=== PATIENT | male | born 1955 | race Caucasian/White ===

== ENCOUNTER 2017-08-23 13:56 | Emergency (ER) | payer OTHER, MEDICARE ==
[~2017-08-23] VITALS: Ht 180.3 cm; Wt 80.3 kg
[2017-08-23 15:01] LABS: Basophils # (auto) 0.1 uL; Basophils % (auto) 0.9 % (0.0-2.0); Eosinophils # (auto) 0.2 uL; Eosinophils % (auto) 2.7 % (0.0-7.0); Hematocrit 42.4 % (41.0-53.0); Hemoglobin 14.5 g/dL (13.5-17.5); Lymphocytes # (auto) 3.2 uL; Lymphocytes % (auto) 43.5 % (10.0-50.0); Mean Corpuscular Hemoglobin 33.2 pg (28.0-32.0); Mean Corpuscular Hgb Conc. 34.1 g/dL (32.0-36.0); Mean Corpuscular Volume 97.2 fL (80.0-100.0); Monocytes # (auto) 0.4 uL; Monocytes % (auto) 5.9 % (0.0-12.0); Neutrophils # (auto) 3.5 uL; Nucleated Red Blood Cells % 0.1 %; Platelet Count (auto) 255 10^3/uL (140-450); Red Blood Cells 4.36 10^6/uL (4.5-5.90); Red Cell Distribution Width 13.8 % (11.8-14.3); White Blood Cell 7.4 10^3/uL (4.4-10.8)
[2017-08-23 15:35] LABS: Albumin 3.8 g/dL (3.4-5.0); BUN/Creatinine Ratio 17.8; Bilirubin, Total 0.4 mg/dL (0.2-1.0); Calcium 8.5 mg/dL (8.5-10.1); Magnesium 2.3 mg/dL (1.6-2.6); Potassium 4.3 mmol/L (3.5-5.1)
[2017-08-23 18:10] VITALS: BP 138/91
== END 2017-08-23 16:17 | disposition home or self-care (01) ==
LOC: ER 13:56
DX: R07.89 Other chest pain (principal); M79.1 Myalgia; F17.210 Nicotine dependence, cigarettes, uncomplicated; R42 Dizziness and giddiness; Z95.2 Presence of prosthetic heart valve
CPT/HCPCS: 36415; 70450; 71046; 72125; 80053; 83735; 84443; 84484; 85025; 93005

== ENCOUNTER → 2017-11-07 | Outpatient (CLI) | payer MEDICARE, OTHER | END | disposition home or self-care (01) | LOC: XY 09:20 | PROVIDERS: ATTEND Family Medicine | DX: I70.291 Other atherosclerosis of native arteries of extremities, right leg (principal); I25.10 Atherosclerotic heart disease of native coronary artery without angina pectoris; F17.200 Nicotine dependence, unspecified, uncomplicated | CPT/HCPCS: 93306; 93886; 93925 ==

== ENCOUNTER 2017-11-21 11:01 | Day surgery (SDC) | payer MEDICARE ==
[~2017-11-21] VITALS: Ht 180.3 cm; Wt 78.5 kg
[2017-11-21] MEDS ORDERED: IODIXANOL 320MG/ML 100ML BTL IV ONE (11:10)
[2017-11-21] MEDS ORDERED: LIDOCAINE HCL 2 %PF INJ 10ML AMP IJ ONE (11:10)
[2017-11-21] MEDS ORDERED: fentaNYL CITRATE 100 MCG/2 ML VL ONE (12:11)
[2017-11-21] MEDS ORDERED: ANGIOMAX 250 MG VIAL IV ONE (12:11)
[2017-11-21] MEDS ORDERED: SODIUM CHL 0.9% 50 ML ONE (12:12)
[2017-11-21] MEDS ORDERED: MIDAZOLAM HCL 1MG/1ML-2 ML VIAL ONE (12:12)
[2017-11-21] MEDS ORDERED: IOHEXOL 350 MG/ML 100ML IJ ONE (12:59)
[2017-11-21] MEDS ORDERED: CLOPIDOGREL 300 MG TAB ONE (13:19)
[2017-11-21] MEDS ORDERED: SIMV-8 PO (15:14)
[2017-11-21] MEDS ORDERED: FLUT100I IN (15:14)
[2017-11-21] MEDS ORDERED: ASPI81TA27 PO (15:14)
[2017-11-21] MEDS ORDERED: ALBUAER3 IN (15:14)
[2017-11-21] MEDS ORDERED: NIFEdipine 10 MG CAP PO ONE (16:15)
[2017-11-21] MEDS ORDERED: NIFEdipine ER 30 MG TAB PO ONE (16:45)
== END 2017-11-21 17:10 | disposition home or self-care (01) ==
LOC: CATH 11:01
PROVIDERS: ATTEND Internal Medicine
DX: I70.211 Atherosclerosis of native arteries of extremities with intermittent claudication, right leg (principal); I71.4 Abdominal aortic aneurysm, without rupture; I10 Essential (primary) hypertension; E78.5 Hyperlipidemia, unspecified
CPT/HCPCS: C1725; C1760; C1769; C1887; C1894; J0583; J1644; J2250; J3010; Q9967; 37224; 99152; 99153

== ENCOUNTER → 2017-11-28 | Outpatient (CLI) | payer MEDICARE, OTHER ==
[~2017-11-28] MED LIST: ALBUAER3 IN; ASPI81TA27 PO; FLUT100I IN; SIMV-8 PO
== END | disposition home or self-care (01) ==
LOC: LAB 13:25
PROVIDERS: ATTEND Internal Medicine
DX: Z01.812 Encounter for preprocedural laboratory examination (principal); I71.4 Abdominal aortic aneurysm, without rupture; I10 Essential (primary) hypertension; E78.5 Hyperlipidemia, unspecified; F17.200 Nicotine dependence, unspecified, uncomplicated
CPT/HCPCS: 36415; 82565; 84520

== ENCOUNTER 2017-12-02 07:37 | Emergency (ER) | payer MEDICARE, OTHER ==
[~2017-12-02] VITALS: Ht 180.3 cm; Wt 78.5 kg
[2017-12-02 07:45] VITALS: BP 126/93
[2017-12-02] MEDS ORDERED: methylPREDNISolone SOD SUCC 125 MG/2 ML VL IM ONE (08:15)
== END 2017-12-02 09:00 | disposition home or self-care (01) ==
LOC: ER 07:37
DX: T78.40XA Allergy, unspecified, initial encounter (principal); F17.210 Nicotine dependence, cigarettes, uncomplicated; Z79.02 Long term (current) use of antithrombotics/antiplatelets; Z79.82 Long term (current) use of aspirin
CPT/HCPCS: 96372; 99283; J2930